=== PATIENT | female | born 1945 | race Caucasian/White ===

== ENCOUNTER → 2017-07-06 | Outpatient (CLI) | payer BC ==
[~2017-07-06] MED LIST: ACET-857 PO; ALLO100T PO; ALLO100T64 PO; ASPI-781 PO; ATOR10TA23 PO; CALC500T; DULO30CA47 PO; DULO60CA6 PO; HYDR-762 PO; LANS30CA47 PO; LORA-186 PO; LORA10CA PO; LYR75 PO; MAGN400O4 PO; NITR-58 PO; OLME40TA14 PO; RANI300T3 PO; SLOW FE; TRAM50TA2 PO
--- NOTE | 2017-07-06 15:37 | RADRPT ---
PROCEDURE: Gastric emptying scan CLINICAL INDICATION: 72 -year-old patient with abdominal pain, nausea and vomiting. TECHNIQUE: Following the oral administration of 1.0 mCi of Tc-99m sulfur colloid, labeled to a fadi id meal, gastric emptying study was obtained. COMPARISON: No prior studies. FINDINGS: The stomach is well visualized. The small intestines are identified. There is evidence of a mildly delayed gastric emptying rate from the start of the study with calcula brien T1/2 time of 96 minutes (normal range is 30 - 90 minutes). There is no evidence of increased activity in the chest to suggest the presence of gastroesophageal reflux. IMPRESSION: Mildly delayed gastric emptying rate . RPTAT: HH .Kandy Christianson MD, Date Time Electronically viewed and signed by .Kandy Christianson MD, MD on 07/06/2017 15:36 .L/
--- NOTE | 2017-07-06 15:41 | RADRPT ---
PROCEDURE: XR Left Tibia and Fibula. CLINICAL INDICATION: Left lower leg pain. TECHNIQUE: Two views. Frontal and lateral. COMPARISON: No prior studies are available for comparison. FINDINGS: There is no fracture or dislocation. The soft tissues are normal. 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 There is no lytic or blastic lesion. IMPRESSION: 1. Left knee total arthroplasty. 2. Otherwise unremarkable images of the left tibia and fibula. RPTAT: QQ .Jethro Britt MD, MD Date Time Electronically viewed and signed by .Jethro Britt MD, MD on 07/06/2017 15:41 .R/
== END | disposition home or self-care (01) ==
LOC: NUC 10:36
PROVIDERS: ATTEND Internal Medicine Gastroenterology
DX: R10.13 Epigastric pain (principal); K57.90 Diverticulosis of intestine, part unspecified, without perforation or abscess without bleeding; R11.0 Nausea; E66.9 Obesity, unspecified; K31.89 Other diseases of stomach and duodenum
CPT/HCPCS: 73590; 78264; A9541

== ENCOUNTER 2017-10-23 00:42 | Emergency (ER) | END 2017-10-23 05:28 | disposition home or self-care (01) ==